=== PATIENT | female | born 1955 | race African-American/Black ===

== ENCOUNTER 2024-07-03 15:15 | Outpatient (CLI) | payer MEDICARE, SELFPAY ==
[2024-07-03 22:54] LABS: PCR FLU A Negative PCR FLU A (Negative); PCR FLU B Negative PCR FLU B (Negative); PCR RSV Negative PCR RSV (Negative); SARS PCR* Negative SARS-CoV-2 (Negative)
== END 2024-07-03 15:16 | disposition home or self-care (01) ==
PROVIDERS: Visit Provider Nurse Practitioner Family
DX: R07.89 Other chest pain (principal); J06.9 Acute upper respiratory infection, unspecified
CPT/HCPCS: 84484; 85025; 87631